=== PATIENT | male | born 1970 | race Caucasian/White ===

== ENCOUNTER → 2020-08-19 | Outpatient (CLI) | payer OTHER ==
[2018-12-21 15:00] VITALS: BP 135/84
[~2020-08-19] MED LIST: ASPI-424 PO; INSU100V37 SQ; PANT40TA77 PO; SEMA0.25 SQ
--- NOTE | 2020-08-20 10:04 | EEG ---
DATE OF SERVICE: 08/19/2020 ELECTROENCEPHALOGRAM REPORT EEG NUMBER: [id number] OBJECTIVE: The patient is a 49-year-old male with episodes of staring and unresponsiveness, rule out partial-complex seizures. DESCRIPTION: This is a digital study. Electrodes are placed according to international 10-20 system. Bipolar and referential montages are available. Activation procedures typically include hyperventilation and intermittent photic stimulation. INTERPRETATION: The waking background consists of 9-10 Hz, 20-50 microvolt activity, symmetrically distributed over parietooccipital regions and reactive to eye opening. Hyperventilation and intermittent photic stimulation are noncontributory. Stage 1 sleep is achieved with normal electroencephalogram patterns. IMPRESSION: This electroencephalogram with the patient awake and asleep is within normal limits. There is no focal, paroxysmal or epileptiform activity. Thank you for letting us help with the patient's care. TAILA HOLT MD DR: MARIE/jovita JOB#: [id number] / [id number] OJ Kumar PETER MD
== END ==
LOC: RT 08:39
PROVIDERS: ATTEND Psychiatry & Neurology Neurology with Special Qualifications in Child Neurology
DX: R40.4 Transient alteration of awareness (principal); R41.0 Disorientation, unspecified; F48.8 Other specified nonpsychotic mental disorders; F48.1 Depersonalization-derealization syndrome
CPT/HCPCS: 95816

== ENCOUNTER 2020-10-03 10:02 | Day surgery (SDC) | payer OTHER ==
[~2020-10-03] VITALS: Ht 198.1 cm; Wt 90.0 kg
[~2020-10-03 10:02] MED LIST changes: +DEXAMETHASONE SOD PHOS 4 MG/ML VIAL ONE; +HYDROmorphone 2 MG/ML VIAL IVP PRN; +IV RINGERS,LACTATED 1000ML 1,000 ML IV SCH; +LIDOCAINE 2% PF 5 ML VIAL. ONE; +MORPHINE SULFATE 2 MG/ML VIAL. IVP PRN; +ONDANSETRON PF 4 MG/2 ML VIAL. ONE; +PROCHLORPERAZINE 10 MG/2 ML VIAL. IVP PRN; +PROPOFOL 10 MG/ML (20ML) VIAL. IV ONE; +fentaNYL PF VIAL 100 MCG/2 ML VIAL IVP PRN
[2020-10-03] MEDS ORDERED: INSULIN LISPRO 100 UNIT/ML 3ML VIAL for OP,RR ONLY. SQ PRN (10:45)
[2020-10-03 10:51] VITALS: BP 134/87
[2020-10-03 10:52] LABS: BASO % 1 % (0-3); EOS # 0.1 x10^3/uL (0.0-0.7); EOS % 2 % (0-3); HEMATOCRIT 42.9 % (39.0-53.0); LYMPH # 1.8 x10^3/uL (1.0-4.8); LYMPH % 28 % (24-48); MEAN CORPUSCULAR HEMOGLOBIN 31 pg (25-35); MEAN CORPUSCULAR HGB CONC 35 g/dL (31-37); MEAN CORPUSCULAR VOLUME 89 fL (79-100); MONO # 0.5 x10^3/uL (0.0-1.1); MONO % 8 % (0-9); NEUT % 62 % (31-73); PLATELET COUNT 242 x10^3/uL (140-400); RED BLOOD COUNT 4.84 x10^6/uL (4.30-5.70); RED CELL DISTRIBUTION WIDTH 13.2 % (11.5-14.5); WHITE BLOOD COUNT 6.5 x10^3/uL (4.0-11.0)
[2020-10-03 11:01] LABS: CALCIUM 8.8 mg/dL (8.5-10.1); CREATININE 0.8 mg/dL (0.7-1.3); GFR 102.7
[2020-10-03] MEDS ORDERED: INSULIN LISPRO 100 UNIT/ML 3ML VIAL for OP,RR ONLY. SQ ONE (11:15)
[2020-10-03] MEDS ORDERED: BUPIVACAINE MPF 0.5% 30 ML VIAL. ONE (11:33)
[2020-10-03] MEDS ORDERED: DEXAMETHASONE SOD PHOS 4 MG/ML VIAL ONE (11:33)
[2020-10-03] MEDS ORDERED: LIDOCAINE 1% Multi-Dose 20 ML VIAL. ONE (11:33)
[2020-10-03] MEDS ORDERED: POVIDONE-IODINE 10% TOPICAL OINTMENT 28GM TUBE. TP ONE (11:33)
[2020-10-03] MEDS ORDERED: fentaNYL PF VIAL 100 MCG/2 ML VIAL ONE (11:56)
[2020-10-03] MEDS ORDERED: SEVOFLURANE 61 TO 120 MINUTES. IH ONE (12:23)
--- NOTE | 2020-10-03 12:28 | SSS ---
ADMIT DATE: 10/03/2020 CHIEF COMPLAINT: Metatarsal hardware, awaiting to be removed. HISTORY OF PRESENT ILLNESS: The patient is a pleasant middle-aged male who has hardware in both feet. In particular, he states his metatarsal bones collapsed and he has hardware. The plan today is to remove the hardware. We have been requested for preop medical evaluation. PAST MEDICAL HISTORY: Hypertension, degenerative joint disease of the feet, status post hardware placement in both feet, GERD and diabetes. ALLERGIES: PENICILLIN, LEVAQUIN AND ONDANSETRON. FAMILY HISTORY: Diabetes. SOCIAL HISTORY: He does not drink, smoke or take drugs. He works at a [employer]. MEDICATIONS: Reviewed. He is on Protonix and Tresiba. REVIEW OF SYSTEMS: GENERAL: No history of weight change, weakness or fevers. SKIN: No bruising, hair changes or rashes. EYES: No blurred, double or loss of vision. NOSE AND THROAT: No history of nosebleeds, hoarseness or sore throat. HEART: No history of palpitations, chest pain or shortness of breath on exertion. LUNGS: Denies cough, hemoptysis, wheezing or shortness of breath. GASTROINTESTINAL: Denies changes in appetite, nausea, vomiting, diarrhea or constipation. GENITOURINARY: No history of frequency, urgency, hesitancy or nocturia. NEUROLOGIC: Denies history of numbness, tingling, tremor or weakness. PSYCHIATRIC: No history of panic, anxiety or depression. ENDOCRINE: No history of heat or cold intolerance, polyuria or polydipsia. EXTREMITIES: Denies muscle weakness, joint pain, pain on walking or stiffness. PHYSICAL EXAMINATION: VITALS: Within normal limits and are stable. GENERAL: No apparent distress. Alert and oriented. HEENT: Normal cephalic atraumatic, external auditory canals are patent. EYES: Extraocular muscles are intact, pupils are equally round and reactive to light and accommodation. MUSCULOSKELETAL: Well developed, well nourished, good range of motion. ENDOCRINE: No thyromegaly was palpated. LYMPHATICS: No cervical chain or axillary nodes were noted. HEMATOPOIETIC: No bruising. NECK: Supple. No JVD, no thyromegaly was noted. LUNGS: Clear to auscultation in all lung mcleod without rhonchi or wheezing. HEART: RRR, S1, S2 present. Peripheral pulses intact, no obvious murmurs were noted. ABDOMEN: Soft, nontender. Positive bowel sounds no organomegaly, normal bowel sounds. EXTREMITIES: Without any cyanosis, clubbing, or edema. Pedal pulses intact, Homans sign is negative. Both feet have an enlarged area on the dorsal surface, which I suspect is where the hardware is placed. NEUROLOGIC: Normal speech, normal tone. A and O x 3, moves all extremities, no obvious focal deficits. PSYCHIATRIC: Normal affect, normal mood. Stable. SKIN: No ulcerations or rashes, good skin turgor, no jaundice. VASCULAR: Good capillary refill, neurovascular bundle appears to be intact. LABORATORY DATA: White count is 6, hemoglobin 15, platelets 242. Electrolytes are normal. Glucose is a little high at 159. ASSESSMENT AND PLAN: Hardware in both feet pending to be removed later today. In my opinion, he is at low risk for intraoperative or postoperative complications. We will go ahead and clear him for surgery. Postoperatively, if he needs to stay, we can assist with admission and would recommend wound care. Home meds, DVT prophylaxis. Full code. SERENA/WALE/CARLI DR: SERENA/jovita TID: [id number]
[2020-10-03] MEDS ORDERED: SEVOFLURANE 31 TO 60 MINUTES. IH ONE (13:01)
--- NOTE | 2020-10-03 13:26 | PDOC4 ---
OPERATIVE NOTE: Surgeon : daisy Pre operative diagnosis: Symptomatic hardware bilateral 3rd metatarsal Post operative diagnosis: same Procedure: Attempted hardware removal 3rd metatarsal right foot Anesthesia: LMA with local Hemostasis: Right ankle tourniquet at 250mmHg EBL 1mL Intra op findings: note screw to 3rd metatarsal neck with evangelina overgrowth. upon debriding bone from head of screw unable to remove without causing significant damage to the metatarsal thus wound irrigated and closed with 4-0 nylon JARRED HUI DPM October 03, 2020 13:26
[2020-10-03 13:41] VITALS: BP 135/90
[2020-10-03] MEDS ORDERED: HYDR-2759 PO (13:58)
--- NOTE | 2020-10-03 13:59 | OP ---
DATE OF SURGERY: 10/03/2020 PREOPERATIVE DIAGNOSIS: Symptomatic hardware, bilateral third metatarsal with preulcerative ulceration plantarly. POSTOPERATIVE DIAGNOSIS: Symptomatic hardware, bilateral third metatarsal with preulcerative ulceration plantarly. PROCEDURE: Attempted hardware removal of the third metatarsal, right foot. ANESTHESIA: LMA with local. HEMOSTASIS: Right ankle tourniquet at 250 mmHg. INDICATIONS: The patient is a 49-year-old male with past medical history significant for diabetes. The patient has been having recurrent painful lesion, which was preulcerative to the bilateral third metatarsal. Due to continued pain and recurrent lesion, recommended to remove the hardware. X-ray in the office showed that the lesion corresponds to the hardware. We discussed with the patient risks, benefits, complications, to include delayed or nonhealing, need for further surgery, infection, blood clots to the leg, blood clot to the lung, recurrence of lesion. All questions were answered and no guarantees made. DESCRIPTION OF PROCEDURE: The patient was transported to the operating room via cart and placed on the operating room table in supine position. Following verification of the surgery, the patient's limbs performed. Timeout was taken to confirm the limbs to be performed and a 1:1 mixture of 1% lidocaine plain and 0.5% Marcaine plain was then administered to the third metatarsal medial and laterally to bilateral feet, 7 mL total to the left and 8 mL total to the right. A well-padded tourniquet was placed over the bilateral ankles and bilateral feet were then prepped and draped in the usual aseptic manner. Attention was directed first to the right foot. An Esmarch bandage was used to exsanguinate the right foot and the right ankle tourniquet was inflated to 250 mmHg. Attention was directed to the third ray and a 2 cm incision was made at the same incision from prior just dorsal to the third metatarsal. This was deepened down to the metatarsal bone and noted could not originally visualize the bone. Thus, the C-arm fluoroscopy was utilized and noted the location of the screw head. An osteotome and a bone elevator were then used to free up the head of the screw. At this time, attempted removal with different screwdrivers; however, there was no universal screwdriver on hold for the size of the screw. It appears the size of the screw is less than 2.0 and felt at this time that any attempts to further free the screw and manually remove without screwdriver would cause more damage to the metatarsal than the actual screw. Thus, decision was made to irrigate the wound and close with 4-0 nylon. We will plan to reschedule the patient for screw removal of bilateral foot at a later date. We will also call around to different manufacturers to identify the screw head and plan for removal at this later date. Tourniquet was released and good perfusion was noted to the left foot. The incision was closed with 4-0 nylon and the wound was dressed with Xeroform gauze, 4 x 4s and Kerlix, Angel bandage. The patient is to be weightbearing as tolerated in a surgical shoe and we will be calling him for rescheduling. BETSY KAT: Adriano TID: [id number]
== END 2020-10-03 14:30 | disposition home or self-care (01) ==
LOC: SURG 10:02
PROVIDERS: ATTEND Podiatrist Foot & Ankle Surgery
DX: T84.84XD Pain due to internal orthopedic prosthetic devices, implants and grafts, subsequent encounter (principal); K21.9 Gastro-esophageal reflux disease without esophagitis; E11.9 Type 2 diabetes mellitus without complications; F32.9 Major depressive disorder, single episode, unspecified; Z87.891 Personal history of nicotine dependence; Z79.899 Other long term (current) drug therapy; Z98.890 Other specified postprocedural states; Z72.89 Other problems related to lifestyle; Z88.0 Allergy status to penicillin; Z88.1 Allergy status to other antibiotic agents; Z88.8 Allergy status to other drugs, medicaments and biological substances; X58.XXXD Exposure to other specified factors, subsequent encounter
CPT/HCPCS: 20680; 36415; 80048; 85025; A4930; A6402; J1100; J1815; J2405; J2704; J3010; J3490; A4657